=== PATIENT | male | born 1975 | race Caucasian/White ===

== ENCOUNTER 2021-02-16 01:13 | Inpatient (IN) | payer MEDICARE, OTHER ==
[~2021-02-16] VITALS: Ht 180.3 cm; Wt 115.2 kg
[~2021-02-16 01:13] MED LIST: 0 PO; ASPIR 8181 MG PO; AUGMENTIN TAB875 MG PO; CARDIZEM CD120 MG PO; COUMADIN 2.5MG2.5 MG PO; ELIQUIS5 MG PO; HYDROCODON-ACE1 EAC6 PO; KLONOPIN TAB 00.5 MG PO; LASIX20 MG PO; LASIX40 MG PO; LEVAQUIN500 MG PO; LIPITOR TAB 2020 MG PO; LISINOPRIL2.5 MG PO; METOPROLOL SUCC25 MG PO; NIFEREX 150 MG150 MG PO; SPIRONOLACTONE25 MG PO; TESSALON PERLE100 MG PO
[2021-02-16 01:57] LABS: HEMOGLOBIN 11.8 gm/dl (14.0-17.5); RED BLOOD COUNT 4.26 M/UL (4.20-5.50); WHITE BLOOD COUNT 9.2 K/UL (4.5-11.0)
[2021-02-16 02:18] LABS: BUN/CREATININE RATIO 21 (0-10)
[2021-02-17 05:28] LABS: HEMOGLOBIN 11.6 gm/dl (14.0-17.5); RED BLOOD COUNT 4.25 M/UL (4.20-5.50); WHITE BLOOD COUNT 10.3 K/UL (4.5-11.0)
--- NOTE | 2021-02-19 05:54 | NUR ---
WENT INTO PT'S ROOM AND THE ROOM REAKED HEAVILY OF CIGARETTE SMOKE. EDUCATED PT AND HIS SIGNIFICANT OTHER THAT THEY CANNOT BE SMOKING IN THE BATHROOM OR ON HOSPITAL PREMISES. PT ADMITTED THAT HE HAD BEEN SMOKING IN THE BATHROOM, DESPITE BEING ON OXYGEN. NOTIFIED RESIDENTIAL ROOFER AND SECURITY.
[2021-02-19 05:58] LABS: HEMOGLOBIN 11.4 gm/dl (14.0-17.5); RED BLOOD COUNT 4.15 M/UL (4.20-5.50); WHITE BLOOD COUNT 13.1 K/UL (4.5-11.0)
[2021-02-20 04:30] LABS: RED BLOOD COUNT 4.02 M/UL (4.20-5.50); WHITE BLOOD COUNT 11.8 K/UL (4.5-11.0)
[2021-02-21 02:32] LABS: HEMOGLOBIN 10.8 gm/dl (14.0-17.5); RED BLOOD COUNT 3.99 M/UL (4.20-5.50)
[2021-02-21 02:33] LABS: WHITE BLOOD COUNT 8.4 K/UL (4.5-11.0)
[2021-02-21 02:58] LABS: BUN/CREATININE RATIO 24 (0-10)
[2021-02-21 22:07] LABS: 25-HYDROXY, VITAMIN D 23 ng/mL (.); 25-HYDROXY, VITAMIN D-2 <1.0 ng/mL (.); 25-HYDROXY, VITAMIN D-3 22 ng/mL (.)
[2021-02-22 05:52] LABS: BUN/CREATININE RATIO 20 (0-10)
[2021-02-22] MEDS ORDERED: BUMETANIDE1 MG PO (08:51)
[2021-02-22] MEDS ORDERED: SPIRONOLACTONE25 MG PO (08:51)
[2021-02-22] MEDS ORDERED: LOPRESSOR 50 MG50 MG PO (08:51)
== END 2021-02-22 12:14 | disposition home or self-care (01) | DRG 291 ==
LOC: ER1 01:13 → CDU 05:10 → MED SURG 4 05:10
PROVIDERS: Internal Medicine; Internal Medicine Nephrology; Physician Assistant; ADMIT Internal Medicine
DX: I13.0 Hypertensive heart and chronic kidney disease with heart failure and stage 1 through stage 4 chronic kidney disease, or unspecified chronic kidney disease (principal); I50.23 Acute on chronic systolic (congestive) heart failure; N17.9 Acute kidney failure, unspecified; E87.1 Hypo-osmolality and hyponatremia; I47.2 Ventricular tachycardia; I48.19 Other persistent atrial fibrillation; I42.0 Dilated cardiomyopathy; Z20.822 Contact with and (suspected) exposure to COVID-19; E87.6 Hypokalemia; M06.9 Rheumatoid arthritis, unspecified; F17.210 Nicotine dependence, cigarettes, uncomplicated; F19.10 Other psychoactive substance abuse, uncomplicated; N18.9 Chronic kidney disease, unspecified; B19.20 Unspecified viral hepatitis C without hepatic coma; E66.01 Morbid (severe) obesity due to excess calories; K21.9 Gastro-esophageal reflux disease without esophagitis; E78.5 Hyperlipidemia, unspecified; R33.9 Retention of urine, unspecified; I08.1 Rheumatic disorders of both mitral and tricuspid valves; Z79.01 Long term (current) use of anticoagulants; Z86.73 Personal history of transient ischemic attack (TIA), and cerebral infarction without residual deficits; Z79.82 Long term (current) use of aspirin; Z95.810 Presence of automatic (implantable) cardiac defibrillator; Z91.14 Patient's other noncompliance with medication regimen; Z83.3 Family history of diabetes mellitus; Z82.49 Family history of ischemic heart disease and other diseases of the circulatory system; Z68.35 Body mass index [BMI] 35.0-35.9, adult; Z79.899 Other long term (current) drug therapy
CPT/HCPCS: ECHO; 36415; 71045; 76870; 80048; 80053; 80061; 80307; 81001; 82306; 82550; 82553; 82570; 82607; 82746; 83036; 83540; 83550; 83735; 83874; 83880; 83935; 84132; 84133; 84156; 84300; 84439; 84443; 84484; 85025; 85045; 89050; 93005; 93306; 94760; 96374; 96375; 99285; G0480; J1200; J1250; J1650; J1940; J2270; J2405; U0002

== ENCOUNTER 2021-07-14 14:54 | Inpatient (IN) | payer MEDICARE, OTHER ==
[~2021-07-14] VITALS: Ht 180.3 cm; Wt 108.0 kg
[~2021-07-14 14:54] MED LIST changes: +BUMETANIDE1 MG PO; +LOPRESSOR 50 MG50 MG PO
[2021-07-14 15:27] LABS: HEMOGLOBIN 13.4 gm/dl (14.0-17.5); RED BLOOD COUNT 4.8 M/UL (4.20-5.50); WHITE BLOOD COUNT 16.1 K/UL (4.5-11.0)
[2021-07-14 16:02] LABS: BORDETELLA PARAPERTUSSIS Not Detected (Not Detectd); BORDETELLA PERTUSSIS Not Detected (Not Detectd); CHLAMYDIA PNEUMONIAE Not Detected (Not Detectd); CORONAVIRUS HKU1 Not Detected (Not Detectd); CORONAVIRUS NL63 Not Detected (Not Detectd); CORONAVIRUS OC43 Not Detected (Not Detectd); CORONOAVIRUS 229E Not Detected (Not Detectd); HUMAN METAPNEUMOVIRUS Not Detected (Not Detectd); HUMAN RHINOVIRUS/ENTEROVIRUS Not Detected (Not Detectd); INFLUENZA A Not Detected (Not Detectd); INFLUENZA B Not Detected (Not Detectd); MYCOPLASMA PNEUMONIAE Not Detected (Not Detectd); PARAINFLUENZA VIRUS 1 Not Detected (Not Detectd); PARAINFLUENZA VIRUS 2 Not Detected (Not Detectd); PARAINFLUENZA VIRUS 3 Not Detected (Not Detectd); PARAINFLUENZA VIRUS 4 Not Detected (Not Detectd); RESPIRATORY SYNCYTIAL VIRUS Not Detected (Not Detectd)
[2021-07-14 17:05] LABS: SARS-CoV-2 NOT DETECTED (Not Detectd)
[2021-07-14] MEDS ORDERED: BUPRENORPHIN-N1 EACH SL (17:51)
[2021-07-14] MEDS ORDERED: METOPROLOL SUCC50 MG PO (17:52)
[2021-07-14] MEDS ORDERED: BUMETANIDE1 MG PO (17:52)
[2021-07-14] MEDS ORDERED: TYLENOL EXTRA500 MG PO (17:53)
[2021-07-14] MEDS ORDERED: IBU800 MG PO (17:53)
--- NOTE | 2021-07-14 23:01 | NUR ---
PATIENT WAS BROUGHT TO THE FLOOR AT 1915 BY THE DIESEL MOTOR MECHANIC AND CHARGE NURSE SEBLE. THE PATIENT WAS BREATHING 40-50 TIMES A MINUTE. THE PATIENT WAS MOVED OVER INTO THE HOSPITAL BED AND HOOKED UP TO THE MONITOR. THE PATIENT'S HEART RATE WAS IN THE 90'S AND O2 WAS 98% ON 3L NC. BLOOD PRESSURE WAS 117/83. THE PATIENT'S EARS WERE BLUE/BLACK. THE PATIENT WAS SWEATING PROFUSELY. AFTER HOOKING THE PATIENT UP TO THE PCU MONITOR AND TRADING OUT THE IV PUMP I ASKED SEBLE WHAT THE PATIENT'S TEMPERATURE WAS BECAUSE THE ER NURSE WAS GOING TO RECHECK IT. THE PATIENT'S TEMP ON ARRIVAL WAS 99.4. WHEN LOOKING AT THE ER PAPERWORK WITH SEBLE, THE RECHECK TEMP WAS WRITTEN 92. SEBLE AND THE DIESEL MOTOR MECHANIC RETURNED TO THE ER. I RECHECKED THE PATIENT'S TEMP UNDER HIS ARM AND IT WAS 97.5. THE PATIENT WAS ON 15MG OF CARDIZEM, HIS HR WAS 90'S SO I TURNED THE DRIP TO 10MG/H. THE PATIENT SAT HIMSELF ON THE SIDE OF THE BED. WHILE ASSESSING THE PATIENT, THE PATIENT CAME IN AND OUT OF CONSCIOUSNESS. HIS GIRLFRIEND ANSWERED THE QUESTIONS HE WOULD NOT AND ATTEMPTED TO KEEP THE PATIENT FOCUSED. THE PATIENT WAS ORIENTED X4. HIS BREATH SOUNDS WERE CLEAR AND DIMINISHED. THE PATIENT'S BREATHING DID NOT GET ANY BETTER THROUGHOUT THE ASSESSMENT. THE PATIENT WAS RESTLESS AND KEPT PUTTING HIMSELF IN THE BED AND THEN STANDING UP AND SITTING DOWN AGAIN. THE PATIENT'S NOSE HAD STARTED TO TURN BLUE. THE PATIENT ASKED IF HE COULD TAKE A SHOWER. I TOLD THE PATIENT THERE WAS NO CHANCE OF HIM GETTING IN THE SHOWER WITH HIS BREATHING THE WAY IT WAS. I CALLED DR. SUTTON AT 1950 AND INFORMED HER OF THE PATIENT'S COLOR AND DISTRESS LEVEL. DR. SUTTON ORDERED A STAT ABG. I IMMEDIATELY PUT THE ORDER IN AND GRABBED THE RESPIRATORY THERAPIST TO GET THE ABG. WE SAT THE PATIENT BACK UP IN THE BED. THE PATIENT WAS RELUCTANT TO LAY IN THE BED. WHILE RESPIRATORY WAS ATTEMPTING TO GET THE ABG, THE PATIENT WAS JERKING AND TRYING TO GET OUT OF THE BED. I CALLED AN VOCATIONAL GUIDANCE COUNSELOR AT 1958. WHILE WAITING FOR THE REST OF THE STAFF TO COME HELP I CALLED DR. SUTTON BACK AT 2000 AND SHE INSTRUCTED ME TO CALL ER AND ASK ONE OF THE DOCTORS TO INTUBATE THE PATIENT. THE PATIENT RESPIRATORY RATE WAS 50 AT THE TIME. WHILE WAITING FOR THE ER DOCTOR TO ARRIVE, NATAN ADMINISTERED 2MG OF ATIVAN THAT WAS ON THE PATIENT'S EMAR FOR CIWA PROTOCOL. THE PATIENT CONTINUED TO STRUGGLE TO BREATHE. I ALSO PULLED THE VOCATIONAL GUIDANCE COUNSELOR KIT FROM THE [employer]. THE PATIENT'S NOSE AND LIPS WERE ALSO TURNING BLUE. THE ER MD, DR. RAHMAN CAME AND INTUBATED THE PATIENT. 40MG OF ETOMIDATE WAS PUSHED AT 2017 ALONG WITH 100MG OF ZEMURON. A 7 1/2 TUBE WAS PLACED. IT WAS 24 AT THE TEETH AT 2021. THE PATIENT'S O2 DID NOT RISE WITH INTUBATION. THE PATIENT'S O2 WAS 81% AT 2023. THE DECISION WAS MADE TO REPLACE THE TUBE USING A BOUJIE. A 7 1/2 TUBE WAS PLACED AT 2026, 26 AT THE LIP. AN XRAY WAS TAKEN AND THE TUBE WAS MOVED TO 25 AT THE LIP. THE PATIENT'S O2 CAME UP TO 96% AT 2028. BEDSIDE REPORT WAS GIVEN TO THE ICU NURSE AND THE PATIENT WAS MOVED TO ROOM 2128.
--- NOTE | 2021-07-14 23:31 | NUR ---
230 PT CONDITIONING WORSENING MD CALLED TO BEDSIDE, VERBAL ORDER RECIEVED TO INCREASE LEVOPHED 50MCG/MIN. OBTAIN LACTIC ACID AND ANTIBIOTIC CHANGES, SEE 2307 PACER PADS PLACED ON PT WITH CRASH CART ATTACHED. PT FOUND TO BE PEA, CPR INITIATED. MEDS GIVEN PER PROTOCOL, PULSE ACQUIRED AT 2311. PT STABLE AT PRESENT. SIGNIFICANT OTHER UPDATED AND AT BEDSIDE.
--- NOTE | 2021-07-15 02:35 | NUR ---
0135 PT IN PULSELESS ELECATRICAL ACTIVITY, AT BEDSIDE CPR INITIATED 0136 EPI GIVEN, 0137 & 0138 BICARB PUSH GIVEN, 0139 PULSE OBTAINED. SEE MAR FOR MEDS
[2021-07-15 04:17] LABS: HEMOGLOBIN 14.4 gm/dl (14.0-17.5); RED BLOOD COUNT 5.15 M/UL (4.20-5.50)
[2021-07-15 04:28] LABS: WHITE BLOOD COUNT 35.1 K/UL (4.5-11.0)
--- NOTE | 2021-07-15 04:43 | NUR ---
0125 PT PLACED ON PERCUTANEOUS PACING AFTER HEART RATE MAINTAINING IN THE 30'S WITH NO RESPONSE TO ATROPINE
--- NOTE | 2021-07-15 04:47 | NUR ---
2114 EKG AFLUTTER, CKMB 9.8, %MB 2.7 2240 NO URINE OUTPUT AFTER LASIX 40MG GIVEN- MD NOTIFIED 2248 BP 79/53 LEVOPHED PER MD 2342 LACTIC ACID 112.5 NS 500ML BOLUS GIVEN PER MD ORDER 0043 MD NOTIFIED OF HR STEADY 38, ATROPINE GIVEN PER MD ORDER, ORDER RECIEVED TO START EPI GTT AND STOP LEVOPHED GTT 022 SEIZURE NOTED ATIVAN 4MG GIVEN PER MD ORDER [address] AND BACK 0422 CT RESULTS GIVEN TO MD ORDER, ASA ORDER RECEIVED AND LABS 0500 CRITICAL LABS REPORTED
--- NOTE | 2021-07-16 07:52 | NUR ---
SPOKE WITH THE SISTER (NEXT OF KIN, DECISION MAKER) SHE DOES NOT WANT COMPRESSION OR SHOCK. IF PT WAS TO GO INTO VTACH OR A SHOCKABLE RHYTHM SHE DOES NOT WANT INTERVENTION.
--- NOTE | 2021-07-16 08:33 | NUR ---
SHAHID CALLED @ [id number] RULED OUT FOR ORGAN DONATION BY [facility].
[2021-07-16 08:40] LABS: HEMOGLOBIN 12.5 gm/dl (14.0-17.5); RED BLOOD COUNT 4.71 M/UL (4.20-5.50); WHITE BLOOD COUNT 19.7 K/UL (4.5-11.0)
[2021-07-17 05:46] LABS: RED BLOOD COUNT 4.71 M/UL (4.20-5.50)
[2021-07-17 05:49] LABS: WHITE BLOOD COUNT 13.1 K/UL (4.5-11.0)
[2021-07-17 11:14] LABS: HBSAG SCREEN Negative (Negative); HEP A AB, IGM Negative (Negative); HEP B CORE AB, IGM Negative (Negative); HEP C VIRUS AB >11.0 (0.0-0.9)
[2021-07-18 04:14] LABS: HEMOGLOBIN 12.9 gm/dl (14.0-17.5); RED BLOOD COUNT 4.74 M/UL (4.20-5.50); WHITE BLOOD COUNT 10.2 K/UL (4.5-11.0)
[2021-07-19 04:33] LABS: HEMOGLOBIN 12.9 gm/dl (14.0-17.5); RED BLOOD COUNT 4.79 M/UL (4.20-5.50); WHITE BLOOD COUNT 11.2 K/UL (4.5-11.0)
[2021-07-20 05:06] LABS: HEMOGLOBIN 13.5 gm/dl (14.0-17.5); RED BLOOD COUNT 5.13 M/UL (4.20-5.50)
[2021-07-20 05:09] LABS: WHITE BLOOD COUNT 15.5 K/UL (4.5-11.0)
--- NOTE | 2021-07-20 19:41 | NUR ---
APPEARS AGITATED,RESTLESS, BITING ETT , BLOOD PRESSURE ELEVATED, DR. SILVERIW UPDATED AND ORDER RECEIVED. SPOKE WITH PATIENTS " GIRLFRIEND " I EXPLAINED PRECEDEX WILL BE STARTED TO PROVIDE COMFORT AND REST . ALL CONCERNS ADDRESSED.
--- NOTE | 2021-07-20 21:30 | NUR ---
PATIENT EXTREMELY AGGITATED. RR 40 , HR 150-180'S . GIRLFRIEND WAS SEEN WITH PHONE IN PATIENTS FACE FACETIMING FAMILY MEMBERS AND EXCITEDLY SAYING , "LOOK AT HIM! HE'S WAKING UP ! " EVENTUALLY THE GIRLFRIEND LEFT THE AREA. SEDATION ON PRECEDEX WAS ACHIEVED. VITAL 107/55 , HR 90 ,RR 24 . GIRLFRIEND RETURNED AND IT WAS REQUESTED THAT IF SHE WAS TO BE IN ROOM NOT TO OVERSTIMULATE PATIENT IT HAD ALREADY BEEN DISCUSSED PREVIOUSLY IN SHIFT. AND, IT WAS SUGGESTED SHE GET SOME REST WELL BY SLEEPING HERSELF. VERBALIZED UNDERSTANDING.
[2021-07-21 05:42] LABS: HEMOGLOBIN 13.6 gm/dl (14.0-17.5)
[2021-07-22 05:16] LABS: HEMOGLOBIN 13.6 gm/dl (14.0-17.5); RED BLOOD COUNT 5.05 M/UL (4.20-5.50); WHITE BLOOD COUNT 16.7 K/UL (4.5-11.0)
[2021-07-23 16:14] LABS: HEPARIN INDUCED PLATELET AB 0.096 OD (0.000-0.400)
[2021-07-24 05:50] LABS: HEMOGLOBIN 12.8 gm/dl (14.0-17.5); RED BLOOD COUNT 4.9 M/UL (4.20-5.50)
[2021-07-26 03:16] LABS: BUN/CREATININE RATIO 29 (0-10)
[2021-07-26] MEDS ORDERED: PROTONIX 40 MG40 M1 PO (12:54)
[2021-07-26] MEDS ORDERED: DIGOXIN250 MCG PO (12:54)
[2021-07-26] MEDS ORDERED: FOLIC ACID 1 MG1 MG PO (12:54)
[2021-07-26] MEDS ORDERED: VITAMIN B-1100 M1 PO (12:54)
[2021-07-26] MEDS ORDERED: NYSTOP60 GM TOP (12:54)
[2021-07-26] MEDS ORDERED: ALDACTONE 25MG25 MG PO (12:54)
== END 2021-07-26 16:59 | disposition home or self-care (01) | DRG 870 ==
LOC: ER1 14:54 → CCU 17:27 → CDU 17:27 → CCU 20:53 → PROG CARE 07-24 11:11
PROVIDERS: Emergency Medicine; Internal Medicine; Internal Medicine Cardiovascular Disease; Internal Medicine Infectious Disease; Internal Medicine Nephrology; Physician Assistant; ADMIT Internal Medicine
PROC: 5A12012 Performance of Cardiac Output, Single, Manual (ICD-10-PCS; principal; 2021-07-14)
PROC: HZ2ZZZZ Detoxification Services for Substance Abuse Treatment (ICD-10-PCS; 2021-07-14)
PROC: 5A1955Z Respiratory Ventilation, Greater than 96 Consecutive Hours (ICD-10-PCS; 2021-07-14)
PROC: 0BH17EZ Insertion of Endotracheal Airway into Trachea, Via Natural or Artificial Opening (ICD-10-PCS; 2021-07-14)
PROC: 3E033XZ Introduction of Vasopressor into Peripheral Vein, Percutaneous Approach (ICD-10-PCS; 2021-07-15)
DX: A41.9 Sepsis, unspecified organism (principal); R65.21 Severe sepsis with septic shock; J96.21 Acute and chronic respiratory failure with hypoxia; J96.22 Acute and chronic respiratory failure with hypercapnia; I50.23 Acute on chronic systolic (congestive) heart failure; K72.00 Acute and subacute hepatic failure without coma; R57.0 Cardiogenic shock; I46.2 Cardiac arrest due to underlying cardiac condition; N17.0 Acute kidney failure with tubular necrosis; J18.9 Pneumonia, unspecified organism; G92.8 Other toxic encephalopathy; K76.7 Hepatorenal syndrome; F11.20 Opioid dependence, uncomplicated; I47.2 Ventricular tachycardia; I13.0 Hypertensive heart and chronic kidney disease with heart failure and stage 1 through stage 4 chronic kidney disease, or unspecified chronic kidney disease; E87.2 Acidosis; I42.0 Dilated cardiomyopathy; D68.8 Other specified coagulation defects; E87.3 Alkalosis; E87.0 Hyperosmolality and hypernatremia; I48.92 Unspecified atrial flutter; G93.40 Encephalopathy, unspecified; Z66 Do not resuscitate; I48.91 Unspecified atrial fibrillation; E83.51 Hypocalcemia; E87.6 Hypokalemia; M06.9 Rheumatoid arthritis, unspecified; F17.210 Nicotine dependence, cigarettes, uncomplicated; F19.10 Other psychoactive substance abuse, uncomplicated; E87.5 Hyperkalemia; F10.10 Alcohol abuse, uncomplicated; K74.60 Unspecified cirrhosis of liver; G40.909 Epilepsy, unspecified, not intractable, without status epilepticus; E66.9 Obesity, unspecified; L89.326 Pressure-induced deep tissue damage of left buttock; R19.7 Diarrhea, unspecified; B18.2 Chronic viral hepatitis C; N18.30 Chronic kidney disease, stage 3 unspecified; R53.83 Other fatigue; F15.10 Other stimulant abuse, uncomplicated; I25.5 Ischemic cardiomyopathy; Z79.01 Long term (current) use of anticoagulants; Z86.73 Personal history of transient ischemic attack (TIA), and cerebral infarction without residual deficits; Z95.810 Presence of automatic (implantable) cardiac defibrillator; Z98.890 Other specified postprocedural states; Z88.1 Allergy status to other antibiotic agents; Z82.49 Family history of ischemic heart disease and other diseases of the circulatory system; Z68.33 Body mass index [BMI] 33.0-33.9, adult
CPT/HCPCS: ECHO; 31500; 36415; 36600; 70450; 71045; 76705; 80048; 80053; 80074; 80162; 80307; 81001; 82140; 82330; 82550; 82553; 82803; 83605; 83735; 83874; 83880; 84100; 84484; 85025; 85027; 85384; 85610; 85730; 87040; 87633; 92526; 92610; 93005; 93306; 94002; 94003; 94664; 94760; 95819; 97162; 97530; 97530-GP-CQ; 99285; A6212; C9113; G0480; J0171; J0360; J0461; J0610; J0692; J0696; J1120; J1160; J1650; J1720; J1940; J1953; J2020; J2060; J2185; J2250; J2550; J2704; J2930; J3411; J3430; J3475; J3480; J7030; J7040; J7050; J7070; P9047; U0002

== ENCOUNTER → 2021-08-08 | Outpatient (CLI) | payer MEDICARE ==
[~2021-08-08] MED LIST changes: +ALDACTONE 25MG25 MG PO; +BUPRENORPHIN-N1 EACH SL; +DIGOXIN250 MCG PO; +FOLIC ACID 1 MG1 MG PO; +IBU800 MG PO; +METOPROLOL SUCC50 MG PO; +NYSTOP60 GM TOP; +PROTONIX 40 MG40 M1 PO; +TYLENOL EXTRA500 MG PO; +VITAMIN B-1100 M1 PO
[2021-08-08 14:30] LABS: BUN/CREATININE RATIO 11 (0-10)
== END ==
LOC: LAB 12:37
PROVIDERS: Internal Medicine Nephrology
DX: N17.9 Acute kidney failure, unspecified (principal)
CPT/HCPCS: 36415; 80053; 82570; 84156

== ENCOUNTER → 2021-11-21 | Outpatient (CLI) | payer SELFPAY | LOC: EXRD 14:32 | DX: K70.30 Alcoholic cirrhosis of liver without ascites (principal); R91.8 Other nonspecific abnormal finding of lung field | CPT/HCPCS: 71046 ==

== ENCOUNTER → 2021-12-05 | Outpatient (CLI) | payer MEDICARE | LOC: RAD 15:24 | DX: R06.02 Shortness of breath (principal) | CPT/HCPCS: 71046 ==

== ENCOUNTER 2021-12-11 12:37 | Emergency (ER) | payer SELFPAY ==
[2021-12-11 15:18] LABS: RED BLOOD COUNT 4.31 M/UL (4.20-5.50); WHITE BLOOD COUNT 9.6 K/UL (4.5-11.0)
[2021-12-11 15:35] LABS: BUN/CREATININE RATIO 10 (0-10)
[2021-12-11] MEDS ORDERED: CEFUROXIME500 MG PO (16:30)
[2021-12-11] MEDS ORDERED: BENZONATATE200 MG PO (16:32)
== END 2021-12-11 17:10 | disposition home or self-care (01) ==
LOC: ER1 12:37
PROVIDERS: Preventive Medicine Occupational Medicine
DX: R05.9 Cough, unspecified (principal); R06.02 Shortness of breath; Z20.822 Contact with and (suspected) exposure to COVID-19; I25.10 Atherosclerotic heart disease of native coronary artery without angina pectoris; I48.91 Unspecified atrial fibrillation; F17.210 Nicotine dependence, cigarettes, uncomplicated
CPT/HCPCS: 0240U; 71045; 80053; 81001; 83605; 83690; 83880; 85025; 85652; 86140; 87086; 93005; 94664; 94760; 96374; 96375; 99285; J0696; J2930; J7030

== ENCOUNTER → 2021-12-18 | Outpatient (CLI) | payer MEDICAID ==
[~2021-12-18] MED LIST changes: +BENZONATATE200 MG PO; +CEFUROXIME500 MG PO
== END ==
LOC: HEART 5 15:21
DX: J18.9 Pneumonia, unspecified organism (principal); R06.02 Shortness of breath; R94.2 Abnormal results of pulmonary function studies
CPT/HCPCS: 94060; 94729

== ENCOUNTER → 2022-03-31 | Outpatient (CLI) | payer MEDICARE | LOC: EXRD 11:28 | DX: J18.9 Pneumonia, unspecified organism (principal); J98.4 Other disorders of lung | CPT/HCPCS: 71046 ==

== ENCOUNTER 2022-04-01 19:27 | Emergency (ER) | payer MEDICARE | END 2022-04-01 19:31 | disposition left against medical advice (07) | LOC: ER1 19:27 | DX: Z53.21 Procedure and treatment not carried out due to patient leaving prior to being seen by health care provider (principal) ==

== ENCOUNTER → 2022-04-02 | Outpatient (CLI) | payer SELFPAY | LOC: RAD 16:40 | DX: M54.50 Low back pain, unspecified (principal); M54.2 Cervicalgia; M54.6 Pain in thoracic spine; S69.91XA Unspecified injury of right wrist, hand and finger(s), initial encounter | CPT/HCPCS: 72040; 72072; 72100; 73110 ==